=== PATIENT | female | born 1990 | race Caucasian/White ===

== ENCOUNTER 2018-04-04 14:57 | Inpatient (IN) ==
[2018-04-04] MEDS ORDERED: Naloxone Inj 0.4 MG/ML Vial IV.PUSH PRN ×2 (15:17→18:53)
[2018-04-04] MEDS ORDERED: Sod Chloride 0.9% Inj 1,000 ML IV.CONT PRN (15:17)
[2018-04-04] MEDS ORDERED: Sodium Chlor 0.9% Inj 500 ML IV.SIG PRN (15:17)
[2018-04-04] MEDS ORDERED: fentaNYL Citrate Inj 100 MCG/2 ML Ampul IV.PUSH PRN ×2 (15:17)
[2018-04-04] MEDS ORDERED: Oxytocin 30 Units/500ml Premix 30 UNITS/500 ML BAG IV.SIG ONE (15:30)
[2018-04-04] MEDS ORDERED: Citric Acid/Sodium Citrate Liq 30 ML UDC PO SCH (15:30)
[2018-04-04] MEDS ORDERED: Lidocaine PF 1.5% Inj 20 ML Ampule ONE (15:47)
[2018-04-04] MEDS ORDERED: Lidocaaine 1.5%/Epinephrine 1:200,000 PF Inj 5 ML Amp ONE (15:47)
[2018-04-04] MEDS ORDERED: fentaNYL 2MCG-Bupiv 0.125% Epi 150 ML EPIDURAL ONE (15:48)
[2018-04-04 15:50] LABS: Baso % (Auto) 0.1 % (0.0-2.0); Eos % (Auto) 0.3 % (0.0-4.0); Hematocrit 32.4 % (35.0-46.0); Hemoglobin 10.9 gm/dL (11.6-15.3); Lymph # (Auto) 1.5 th/mm3 (1.0-4.8); Lymph % (Auto) 10.7 % (9.0-44.0); Mean Corpuscular HGB Conc 33.7 % (32.0-36.0); Mean Corpuscular Hemoglobin 29.8 pg (27.0-34.0); Mean Corpuscular Volume 88.3 fL (80.0-100.0); Mean Platelet Volume 8.6 fL (7.0-11.0); Mono # (Auto) 0.9 th/mm3 (0.0-0.9); Mono % (Auto) 6.4 % (0.0-8.0); Neut # (Auto) 11.7 th/mm3 (1.8-7.7); Neut % (Auto) 82.5 % (16.0-70.0); Platelet Count 268 th/mm3 (150-450); Red Blood Count 3.66 mil/mm3 (4.00-5.30); Red Cell Distribution Width 12.9 % (11.6-17.2); White Blood Count 14.2 th/mm3 (4.0-11.0)
[2018-04-04 15:54] LABS: Amorphous Sediment,Urine Few /hpf; Bacteria,Urine Occasional /hpf; Bilirubin,Urine Negative (Negative); Clarity,Urine Turbid (Clear); Color,Urine Yellow (Yellw/Straw); Glucose,Urine (UA) Negative (Negative); Leukocyte Esterase,Urine Trace (Negative); Mucus,Urine Moderate /lpf (Occasional); Nitrite,Urine Negative (Negative); Specific Gravity,Urine 1.018 (1.002-1.035); Squamous Epithelial Cell,Urine 3 /hpf (0-5)
[2018-04-04 15:58] LABS: Amphetamine Urine With Conf Neg (Neg); Benzodiazepine Urine With Conf Neg (Neg)
[2018-04-04] MEDS ORDERED: Varicella Vaccine Live 1350 UNITS/0.5 ML Vial SQ ONE (16:00)
[2018-04-04] MEDS ORDERED: Measles/Mumps/Rubella Vaccine Inj 0.5 ML Vial SQ ONE (16:00)
[2018-04-04] MEDS ORDERED: Penicillin G Potassium Inj 5,000,000 UNIT in Sodium Chloride 0.9% Inj 100 ML IV.SIG ONE (16:00)
[2018-04-04] MEDS ORDERED: Diphtheria/Tetanus/Pertussis Vaccine Inj 0.5 ML Syringe IM ONE (16:00)
[2018-04-04] MEDS ORDERED: Rho Immune Globulin Inj 1,500 UNIT/1.3 ML Vial IM ONE (16:00)
[2018-04-04] MEDS ORDERED: fentaNYL 2MCG-Bupiv 0.125% Epi 150 ML EPIDURAL PRN (16:35)
[2018-04-04] MEDS ORDERED: fentaNYL Citrate Inj 100 MCG/2 ML Ampul EPIDURAL ONE (16:35)
--- NOTE | 2018-04-04 17:22 | P.HPOB ---
History of Present Illness Primary Care Physician: No Primary Care Physician Chief Complaint: contractions History of Present Illness: 27 yo with iup at 35w5d who presented for jak visit noting ctx every 10 min since 2 am. She was 7/c/0 on sve. bbow. No bleeding, lof. Good fm. She has been followed for being at risk for iugr; last u/s 3 wk ago noted efw 3 lb 11 oz. Seh was to have a repeat growth u/s today but this was deferred due to active labor and pt discomfort. PMH: Asthma, HSV, CT this . Varicella non-immune. ASC-h pap (colpo x 2 in ). 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 This includes certification that hospital inpatient services are reasonable and necessary and in the case of services not specified as inpatient-only under 42 CFR 419.22(n), that they are appropriately provided as inpatient services in accordance to with the 2-midnight benchmark under 43 CFR 412.3(e) Estimated Total Length of Stay (Days): 2 Plans for Post Hospital Care: Home Review of Systems All other systems reviewed negative except as stated in HPI PMFSH - Medical / Surgical Hx Neg / Unobtainable Surgical History: No Previous Surgery - Medical History Medical History: Medical History (Last Updated 04/04/18 @ 17:15 by Brittney Blanco MD) Asthma - Social History I have reviewed the patient's Social History: Yes - Tobacco History Tobacco Use In Past 30 Days: No Smoking Status: Former smoker Tobacco Type: Cigarettes - Alcohol History How Often Do You Have a Drink Containing Alcohol: Never - Substance Use History Substance History: No History of Abuse - Travel History History of Recent Travel: No Recent Travel in the [place] Within the Last 8 Weeks: No Recent Travel Out of the Country Within the Last 8 Weeks: No Medications and Allergies Active Medications: Active Medications Citric Acid/Sodium Citrate (Sodium Citrate/Citric Acid Liq) 30 ml PO CHEMICAL DETECTION EXPERT YESENIA Stop: 04/08/18 15:29 Ephedrine Sulfate (Ephedrine/Ns Syringe) 10 mg IV.PUSH UNSCH PRN PRN Reason: SEE LABEL COMMENTS Stop: 04/05/18 16:35 Fentanyl Citrate (Fentanyl Inj) 50 mcg IV.PUSH Q1H PRN PRN Reason: Pain Scale 3 - 5 Fentanyl Citrate (Fentanyl Inj) 100 mcg IV.PUSH Q1H PRN PRN Reason: PAIN SCALE 6 TO 10 Lactated Ringer's (Lr 1000 Ml Inj) 1,000 mls @ 125 mls/hr IV.CONT .Q8H YESENIA Last Admin: 04/04/18 15:33 Dose: 125 mls/hr Lactated Ringer's (Lr 1000 Ml Inj) 1,000 mls @ 3,000 mls/hr IV.SIG UNSCH PRN PRN Reason: compromise or epidural Sodium Chloride (Ns Inj) 500 mls @ 1,000 mls/hr IV.SIG UNSCH PRN PRN Reason: SEE LABEL COMMENTS Sodium Chloride (Ns Inj) 1,000 mls @ 100 mls/hr IV.CONT .Q10H PRN PRN Reason: SEE LABEL COMMENTS Penicillin G Potassium 2,500, (000 unit/ Sodium Chloride) 100 mls @ 200 mls/hr IV.SIG Q4H YESENIA Fentanyl/Bupivacaine/Sodium Chlor (Fentanyl 2 Mcg-Bupiv 0.125% Epi) 150 mls @ 12 mls/hr EPIDURAL PRN PRN PRN Reason: for Labor Pain Lidocaine HCl (Xylocaine 1% Inj) 0.1 ml I-DERMAL PRN PRN PRN Reason: For IV start Stop: 04/07/18 15:16 Lidocaine HCl (Xylocaine 1% Inj) 10 ml INFILTRATN PRN PRN PRN Reason: For episiotomy repair Stop: 04/06/18 15:16 Mineral Oil (Muri-Lube Oil) 10 ml TOPICAL UNSCH PRN PRN Reason: PRN perineal massage Miscellaneous Information (Misc Information) 1 each OTHER UNSCH PRN PRN Reason: SEE LABEL COMMENTS Stop: 04/05/18 16:35 Miscellaneous Information (Misc Information) 1 each OTHER UNSCH PRN PRN Reason: SEE LABEL COMMENTS Stop: 04/05/18 16:35 Naloxone HCl (Narcan Inj) 0.1 mg IV.PUSH Q2M PRN PRN Reason: for opiate reversal Ondansetron HCl (Zofran Inj) 4 mg IV.PUSH Q6H PRN PRN Reason: NAUSEA OR VOMITING Allergies Allergy/AdvReac Type Severity Reaction Status Date / Time No Known Allergies Allergy Verified 04/04/18 15:32 Home Medications Medication Instructions Recorded Confirmed Type prenat.vits,daya,[id number] 2 tab PO DAILY 04/04/18 04/04/18 History [ Vitamin] Exam Vital signs: Vital Signs 04/04/18 15:11 04/04/18 15:56 04/04/18 16:00 Temperature Pulse Rate 91 H 87 101 H Respiratory Rate Blood Pressure 123/72 121/79 127/75 04/04/18 16:06 04/04/18 16:11 04/04/18 16:13 Temperature Pulse Rate 116 H 122 H 111 H Respiratory Rate 18 Blood Pressure 111/64 123/104 H 103/55 L 04/04/18 16:20 04/04/18 16:28 04/04/18 16:30 Temperature Pulse Rate 103 H 116 H 97 H Respiratory Rate Blood Pressure 99/54 L 93/52 L 103/67 04/04/18 16:35 04/04/18 16:36 04/04/18 16:40 Temperature Pulse Rate 114 H 92 H 102 H Respiratory Rate Blood Pressure 111/66 04/04/18 16:45 04/04/18 16:50 04/04/18 17:05 Temperature 98.2 F Pulse Rate 101 H 114 H Respiratory Rate Blood Pressure 110/76 118/59 L Intake & Output 04/03/18 04/04/18 04/04/18 18:59 06:59 18:59 Weight 75.75 kg - Constitutional no acute distress - Routine HEENT Exam Head: Present: normocephalic Eye: Present: EOMI - Routine Neck Exam Present: supple, full ROM - Routine Chest/Breast/Axilla Exam Chest wall: Absent: tenderness - Routine Respiratory Exam Absent: accessory muscle use, respiratory distress - Routine Cardiovascular Exam Present: RRR - Routine Abdominal Exam Present: firm (muna) - Routine Exam Patient deferred: external exam (normal, no hsv lesions) External: Present: normal urethra appearance Groin: Absent: inguinal hernia Perineum Description: Intact Comments: 7/c/0 in office, presently 9/c/0 - Routine Extremities Exam Present: edema. Absent: cyanosis, clubbing - Routine Skin Exam Present: intact - Routine Neurological Exam Present: alert, oriented X3 Results - Labs CBC & Chem 7: 04/04/18 15:22 Labs: Laboratory Results - last 24 hr 04/04/18 04/04/18 04/04/18 15:22 15:22 15:22 WBC 14.2 H RBC 3.66 L Hgb 10.9 L Hct 32.4 L MCV 88.3 MCH 29.8 MCHC 33.7 RDW 12.9 Plt Count 268 MPV 8.6 Neut % (Auto) 82.5 H Lymph % (Auto) 10.7 [place] % (Auto) 6.4 Eos % (Auto) 0.3 Baso % (Auto) 0.1 Neut # (Auto) 11.7 H Lymph # (Auto) 1.5 [place] # (Auto) 0.9 Eos # (Auto) 0.0 Baso # (Auto) 0.0 WBC Differential . Differential Comment Auto diff final Urine Color Urine Clarity Urine pH Ur Specific [place] Urine Protein Urine Glucose (UA) Urine Ketones Urine Occult Blood Urine Nitrate Urine Bilirubin Urine Urobilinogen Ur Leukocyte Esterase Urine RBC Urine WBC Ur Squamous Epith Cells Amorphous Sediment Urine Bacteria Urine Mucus Micro UA Comment Ur Microscopic Review Urine Culture Comments Urine Opiates Screen Neg Ur Barbiturates Screen Neg Ur Amphetamine Screen Neg U Benzodiazepines Scrn Neg Urine Cocaine Screen Neg U Cannabinoids Screen Pos H Blood Type A Negative 04/04/18 15:22 WBC RBC Hgb Hct MCV MCH MCHC RDW Plt Count MPV Neut % (Auto) Lymph % (Auto) [place] % (Auto) Eos % (Auto) Baso % (Auto) Neut # (Auto) Lymph # (Auto) [place] # (Auto) Eos # (Auto) Baso # (Auto) WBC Differential Differential Comment Urine Color Yellow Urine Clarity Turbid H Urine pH 8.0 Ur Specific [place] 1.018 Urine Protein 30 H Urine Glucose (UA) Negative Urine Ketones Negative Urine Occult Blood Negative Urine Nitrate Negative Urine Bilirubin Negative Urine Urobilinogen Less than 2 Ur Leukocyte Esterase Trace H Urine RBC 2 Urine WBC 3 Ur Squamous Epith Cells 3 Amorphous Sediment Few H Urine Bacteria Occasional H Urine Mucus Moderate H Micro UA Comment Culture not ind Ur Microscopic Review Not Reportable Urine Culture Comments Culture not ind Urine Opiates Screen Ur Barbiturates Screen Ur Amphetamine Screen U Benzodiazepines Scrn Urine Cocaine Screen U Cannabinoids Screen Blood Type Group B Strep: unknown Caprini VTE Risk Assessment Caprini VTE Risk Assessment: No/Low Risk (score <= 1) Caprini Risk Assessment Model: Point Value = 1 Point Value = 2 Point Value = 3 Point Value = 5 Age 41-60 Minor surgery BMI > 25 kg/m2 Swollen legs Varicose veins or History of unexplained or recurrent spontaneous Oral contraceptives or hormone replacement Sepsis (< 1 month) Serious lung disease, including pneumonia (< 1 month) Abnormal pulmonary function Acute myocardial infarction Congestive heart failure (< 1 month) History of inflammatory bowel disease Medical patient at bed rest Age 61-74 Arthroscopic surgery Major open surgery (> 45 min) Laparoscopic surgery (> 45 min) Malignancy Confined to bed (> 72 hours) Immobilizing plaster cast Central venous access Age >= 75 History of VTE Family history of VTE Factor V Leiden Prothrombin [id number] Lupus anticoagulant Anticardiolipin antibodies Elevated serum homocysteine Heparin-induced thrombocytopenia Other congenital or acquired thrombophilia Stroke (< 1 month) Elective arthroplasty Hip, pelvis, or leg fracture Acute spinal cord injury (< 1 month) Prophylaxis Regimen: Total Risk Factor Score Risk Level Prophylaxis Regimen 0-1 Low Early ambulation 2 Moderate Order ONE of the following: *Sequential Compression Device (SCD) *Heparin 5000 units SQ BID 3-4 Higher Order ONE of the following medications: *Heparin 5000 units SQ TID *Enoxaparin/Lovenox 40 mg SQ daily (WT < 150 kg, CrCl > 30 mL/min) *Enoxaparin/Lovenox 30 mg SQ daily (WT < 150 kg, CrCl > 10-29 mL/min) *Enoxaparin/Lovenox 30 mg SQ BID (WT < 150 kg, CrCl > 30 mL/min) AND/OR *Sequential Compression Device (SCD) 5 or more Highest Order ONE of the following medications: *Heparin 5000 units SQ TID (Preferred with Epidurals) *Enoxaparin/Lovenox 40 mg SQ daily (WT < 150 kg, CrCl > 30 mL/min) *Enoxaparin/Lovenox 30 mg SQ daily (WT < 150 kg, CrCl > 10-29 mL/min) *Enoxaparin/Lovenox 30 mg SQ BID (WT < 150 kg, CrCl > 30 mL/min) AND *Sequential Compression Device (SCD) Assessment and Plan - Diagnosis (1) labor Code(s): O60.00 - labor without delivery, unspecified trimester Status : Acute (2) 35 weeks gestation of Code(s): Z3A.35 - 35 weeks gestation of Status: Acute (3) Rh negative state in antepartum period Code(s): O09.899 - Supervision of other high risk pregnancies, unspecified trimester; Z67.91 - Unspecified blood type, Rh negative Status: Acute (4) IUGR (intrauterine growth restriction) Status: Acute - Plan 27 yo with iup at 35w5d being admitted with labor 1) labor- progressed from 7 to 9 cm dilated. She has epidural placed, anticipate 2) iugr- likely less than 5 lb 3) gbs unknown- on pcn 4) RH neg- s/p rhogam 5) HSV- n current esions notee on exam. 6) CT this - nadiya neg 7) ASC-H on pap- had colpo during . Will need repeat pap pp. 8) Anemia- on iron 9) fetus- male, iugr, normal dopplers adn bpp prior 3 wk, cat I tracing (1) labor Qualifiers: labor trimester: third trimester Fetus number: single or unspecified fetus
[2018-04-04] MEDS ORDERED: Lidocaine 1% Inj 50 ML Vial ONE (17:33)
[2018-04-04] MEDS ORDERED: Witch Hazel 50%/Glyderin 12.5% 40 Pad Jar RECTAL PRN (18:53)
[2018-04-04] MEDS ORDERED: Oxytocin 30 Units/500ml Premix 30 UNITS/500 ML BAG IV.CONT PRN (18:53)
[2018-04-04] MEDS ORDERED: Acetaminophen 325 MG Tablet PO PRN (18:53)
[2018-04-04] MEDS ORDERED: Bisacodyl 10 MG Supp RECTAL PRN (18:53)
[2018-04-04] MEDS ORDERED: Zolpidem Tartrate 5 MG Tablet PO PRN (18:53)
[2018-04-04] MEDS ORDERED: Benzocaine 20% Top Spray 60 ML Can TOPICAL PRN (18:53)
[2018-04-04] MEDS ORDERED: ceFAZolin Inj 3,000 MG in Sodium Chlor 0.9% Inj 100 ML IV.SIG SCH (18:56)
--- NOTE | 2018-04-04 19:06 | P.OBDELI ---
Weeks Gestation: 35 Patient Started Active Labor: Yes Medical Induction of Labor: No Artificial Rupture of Membrane: Yes (at 9 cm) Anesthesia: Epidural Episiotomy: none Vaginal Delivery: Normal Presentation: Occiput anterior Nuchal Cord: x1 (reduced at perineum) Delayed Cord Clamping (45 sec): Yes Placenta: Manual removal, Not intact (macerated in appearance, multiple calcifications. cx collected and sent to pathology), Uterus explored + (sharp curettage performed, until no further products noted) Repair: Chromic running (right labial laceration) Estimated blood loss (mL): 600 : Male Infant Male A Delivery Date: 04/04/18 Infant Delivery Time: 18:04 Weight: 2.125 kg score (1 min): 8 score (5 min): 8 Additional Information: methergine q 8 hours and ancef will be started.
[2018-04-04] MEDS ORDERED: Penicillin G Potassium Inj 2,500,000 UNIT in Sodium Chlor 0.9% Inj 100 ML IV.SIG SCH (20:00)
[2018-04-04] MEDS: Senna/Docusate Sodium 8.6/50 MG Tablet PO SCH (22:19)
[2018-04-05] MEDS ORDERED: Ferrous Sulfate 325 MG Tablet PO SCH (09:00)
[2018-04-05] MEDS: Ferrous Sulfate 325 MG Tablet PO SCH (09:15)
[2018-04-05] MEDS: Senna/Docusate Sodium 8.6/50 MG Tablet PO SCH ×2 (09:15→22:13)
--- NOTE | 2018-04-05 11:32 | P.PNOB ---
Subjective Post day: 1 Interval history: PPD#1, Doing well, no c/o Objective Vital Signs/I&O: Vital Signs 04/04/18 15:11 04/04/18 15:56 04/04/18 16:00 Temperature Pulse Rate 91 H 87 101 H Respiratory Rate Blood Pressure 123/72 121/79 127/75 04/04/18 16:06 04/04/18 16:11 04/04/18 16:13 Temperature Pulse Rate 116 H 122 H 111 H Respiratory Rate 18 Blood Pressure 111/64 123/104 H 103/55 L 04/04/18 16:20 04/04/18 16:28 04/04/18 16:30 Temperature Pulse Rate 103 H 116 H 97 H Respiratory Rate Blood Pressure 99/54 L 93/52 L 103/67 04/04/18 16:35 04/04/18 16:36 04/04/18 16:40 Temperature Pulse Rate 114 H 92 H 102 H Respiratory Rate Blood Pressure 111/66 04/04/18 16:45 04/04/18 16:50 04/04/18 16:55 Temperature 98.2 F Pulse Rate 101 H 90 Respiratory Rate Blood Pressure 110/76 04/04/18 17:05 04/04/18 17:16 04/04/18 17:25 Temperature Pulse Rate 114 H 94 H 95 H Respiratory Rate Blood Pressure 118/59 L 106/51 L 04/04/18 17:40 04/04/18 18:50 04/04/18 19:00 Temperature 98.2 F Pulse Rate 95 H 101 H 81 Respiratory Rate 18 Blood Pressure 106/59 L 115/62 109/64 04/04/18 19:15 04/04/18 19:31 04/04/18 21:30 Temperature 98.1 F Pulse Rate 90 92 H 87 Respiratory Rate 15 18 Blood Pressure 119/72 125/67 113/69 04/05/18 08:00 Temperature 98.1 F Pulse Rate 88 Respiratory Rate 18 Blood Pressure 110/77 Intake & Output 04/04/18 04/05/18 04/05/18 18:59 06:59 18:59 Intake Total 100 / 100 Balance 100 / 100 Weight 75.75 kg Intake: IV 100 / 100 Ancef Inj 1,000 MG In NS Inj 100 / 100 100 ML @ 200 mls/hr IV.SIG Q8H YESENIA Rx#:[id number] Result Diagrams: 10/02/18 15:22 Objective Remarks: GENERAL: Well-nourished, well-developed patient. CARDIOVASCULAR: Regular rate and rhythm without murmurs, gallops, or rubs. RESPIRATORY: Breath sounds equal bilaterally. No accessory muscle use. ABDOMEN/GI: Abdomen soft, non-tender. Fundus: Firm, non-tender at umbilicus. GENITOURINARY: Light to moderate bleeding. EXTREMITIES: No cyanosis or edema, non-tender, without signs of DVT. Medications and IVs: Active Medications Acetaminophen (Tylenol) 650 mg PO Q4H PRN PRN Reason: PAIN SCALE 1 TO 2 Al Hydroxide/Mg Hydroxide (Milk Of Magnesia Liq) 30 ml PO Q12H PRN PRN Reason: Mild Constipation Benzocaine (Americaine 20% Top [place]) 1 spray TOPICAL Q4H PRN PRN Reason: For Perineum Discomfort Last Admin: 04/04/18 22:16 Dose: 1 spray Bisacodyl (Dulcolax Supp) 10 mg RECTAL DAILY PRN PRN Reason: SEVERE CONSITIPATION Citric Acid/Sodium Citrate (Sodium Citrate/Citric Acid Liq) 30 ml PO WATER PUMP ASSEMBLER [facility] Stop: 04/08/18 15:29 Ephedrine Sulfate (Ephedrine/Ns Syringe) 10 mg IV.PUSH UNSCH PRN PRN Reason: SEE LABEL COMMENTS Stop: 04/05/18 16:35 Last Admin: 04/04/18 19:02 Dose: 10 mg Fentanyl Citrate (Fentanyl Inj) 50 mcg IV.PUSH Q1H PRN PRN Reason: Pain Scale 3 - 5 Fentanyl Citrate (Fentanyl Inj) 100 mcg IV.PUSH Q1H PRN PRN Reason: PAIN SCALE 6 TO 10 Ferrous Sulfate (Ferosul) 325 mg PO DAILY [facility] Last Admin: 04/05/18 09:15 Dose: 325 mg Lactated Ringer's (Lr 1000 Ml Inj) 1,000 mls @ 125 mls/hr IV.CONT .Q8H [facility] Last Admin: 04/05/18 11:04 Dose: Not Given Lactated Ringer's (Lr 1000 Ml Inj) 1,000 mls @ 3,000 mls/hr IV.SIG UNSCH PRN PRN Reason: compromise or epidural Last Admin: 04/04/18 19:03 Dose: 3,000 mls/hr Sodium Chloride (Ns Inj) 500 mls @ 1,000 mls/hr IV.SIG UNSCH PRN PRN Reason: SEE LABEL COMMENTS Sodium Chloride (Ns Inj) 1,000 mls @ 100 mls/hr IV.CONT .Q10H PRN PRN Reason: SEE LABEL COMMENTS Fentanyl/Bupivacaine/Sodium Chlor (Fentanyl 2 Mcg-Bupiv 0.125% Epi) 150 mls @ 12 mls/hr EPIDURAL PRN PRN PRN Reason: for Labor Pain Oxytocin (Pitocin 30 Units/Ns 500 Ml Premix) 30 units in 500 mls @ 100 mls/hr IV.CONT UNSCH PRN PRN Reason: Heavy bleeding Cefazolin Sodium 1,000 mg/ (Sodium Chloride) 100 mls @ 200 mls/hr IV.SIG Q8H YESENIA Stop: 04/05/18 14:29 Last Admin: 04/05/18 06:40 Dose: 200 mls/hr Ibuprofen (Motrin) 800 mg PO Q8H PRN PRN Reason: For Cramping Last Admin: 04/05/18 06:49 Dose: 800 mg Lidocaine HCl (Xylocaine 1% Inj) 0.1 ml I-DERMAL PRN PRN PRN Reason: For IV start Stop: 04/07/18 15:16 Lidocaine HCl (Xylocaine 1% Inj) 10 ml INFILTRATN PRN PRN PRN Reason: For episiotomy repair Stop: 04/06/18 15:16 Methylergonovine Maleate (Methergine) 0.2 mg PO Q8HR YESENIA Stop: 04/06/18 21:59 Last Admin: 04/05/18 06:41 Dose: 0.2 mg Mineral Oil (Muri-Lube Oil) 10 ml TOPICAL UNSCH PRN PRN Reason: PRN perineal massage Last Admin: 04/04/18 19:00 Dose: 10 ml Miscellaneous Information (Misc Information) 1 each OTHER UNSCH PRN PRN Reason: SEE LABEL COMMENTS Stop: 04/05/18 16:35 Miscellaneous Information (Misc Information) 1 each OTHER UNSCH PRN PRN Reason: SEE LABEL COMMENTS Stop: 04/05/18 16:35 Naloxone HCl (Narcan Inj) 0.1 mg IV.PUSH Q2M PRN PRN Reason: for opiate reversal Naloxone HCl (Narcan Inj) 0.1 mg IV.PUSH Q2M PRN PRN Reason: for opiate reversal Ondansetron HCl (Zofran Inj) 4 mg IV.PUSH Q6H PRN PRN Reason: NAUSEA OR VOMITING Ondansetron HCl (Zofran Odt) 4 mg PO Q6H PRN PRN Reason: NAUSEA OR VOMITING Oxycodone/Acetaminophen (Percocet 5/325 Mg) 1 tab PO Q4H PRN PRN Reason: PAIN SCALE 3 TO 5 Senna/Docusate Sodium (Adina-Colace) 1 tab PO BID [facility] Last Admin: 04/05/18 09:15 Dose: 1 tab Sennosides (Senokot) 17.2 mg PO Q12H PRN PRN Reason: Moderate Constipation Sodium Chloride (Ns Flush) 2 ml IV.FLUSH BID [facility] Last Admin: 04/04/18 23:10 Dose: 2 ml Sodium Chloride (Ns Flush) 2 ml IV.FLUSH PRN PRN PRN Reason: FLUSH AFTER USING IV ACCESS Witch Tanisha/Glycerin (Tucks Pads) 1 applicatio RECTAL QID PRN PRN Reason: HEMORRHOIDS Last Admin: 04/04/18 22:17 Dose: 1 applicatio Zolpidem Tartrate (Ambien) 5 mg PO HS PRN PRN Reason: SLEEP Assessment and Plan - Diagnosis (1) labor Code(s): O60.00 - labor without delivery, unspecified trimester Status : Acute (2) 35 weeks gestation of Code(s): Z3A.35 - 35 weeks gestation of Status: Acute (3) Rh negative state in antepartum period Code(s): O09.899 - Supervision of other high risk pregnancies, unspecified trimester; Z67.91 - Unspecified blood type, Rh negative Status: Acute (4) IUGR (intrauterine growth restriction) Status: Acute - Plan 27 yo with iup at 35w5d being admitted with labor 1) labor- progressed from 7 to 9 cm dilated. She has epidural placed, anticipate 2) iugr- likely less than 5 lb 3) gbs unknown- on pcn 4) RH neg- s/p rhogam 5) HSV- n current esions notee on exam. 6) CT this - nadiya neg 7) ASC-H on pap- had colpo during . Will need repeat pap pp. 8) Anemia- on iron 9) fetus- male, iugr, normal dopplers adn bpp prior 3 wk, cat I tracing 04/05/18; PPD#1; Stable, plan discharge for tomorrow Discharge Planning: Tomorrow (1) labor Qualifiers: labor trimester: third trimester Fetus number: single or unspecified fetus
[2018-04-06] MEDS: Senna/Docusate Sodium 8.6/50 MG Tablet PO SCH (08:06)
[2018-04-06] MEDS: Ferrous Sulfate 325 MG Tablet PO SCH (08:06)
[2018-04-06] MEDS ORDERED: Diphtheria/Tetanus/Pertussis Vaccine Inj 0.5 ML Syringe IM ONE (08:09)
--- NOTE | 2018-04-06 08:13 | P.PNOB ---
Subjective Post day: 2 Interval history: no complaints, ready to go home Objective Vital Signs/I&O: Vital Signs 04/05/18 20:00 Temperature 97.9 F Pulse Rate 75 Respiratory Rate 18 Blood Pressure 114/65 Result Diagrams: 04/04/18 15:22 Objective Remarks: GENERAL: Well-nourished, well-developed patient. CARDIOVASCULAR: Regular rate and rhythm without murmurs, gallops, or rubs. RESPIRATORY: Breath sounds equal bilaterally. No accessory muscle use. ABDOMEN/GI: Abdomen soft, non-tender. Fundus: Firm, non-tender at umbilicus. GENITOURINARY: Light to moderate bleeding. EXTREMITIES: No cyanosis or edema, non-tender, without signs of DVT. Medications and IVs: Active Medications Acetaminophen (Tylenol) 650 mg PO Q4H PRN PRN Reason: PAIN SCALE 1 TO 2 Al Hydroxide/Mg Hydroxide (Milk Of Magnesia Liq) 30 ml PO Q12H PRN PRN Reason: Mild Constipation Benzocaine (Americaine 20% Top [place]) 1 spray TOPICAL Q4H PRN PRN Reason: For Perineum Discomfort Last Admin: 04/04/18 22:16 Dose: 1 spray Bisacodyl (Dulcolax Supp) 10 mg RECTAL DAILY PRN PRN Reason: SEVERE CONSITIPATION Citric Acid/Sodium Citrate (Sodium Citrate/Citric Acid Liq) 30 ml PO APPLIANCE [facility] Stop: 04/08/18 15:29 Fentanyl Citrate (Fentanyl Inj) 50 mcg IV.PUSH Q1H PRN PRN Reason: Pain Scale 3 - 5 Fentanyl Citrate (Fentanyl Inj) 100 mcg IV.PUSH Q1H PRN PRN Reason: PAIN SCALE 6 TO 10 Ferrous Sulfate (Ferosul) 325 mg PO DAILY [facility] Last Admin: 04/06/18 08:06 Dose: 325 mg Lactated Ringer's (Lr 1000 Ml Inj) 1,000 mls @ 125 mls/hr IV.CONT .Q8H [facility] Last Admin: 04/06/18 02:18 Dose: Not Given Lactated Ringer's (Lr 1000 Ml Inj) 1,000 mls @ 3,000 mls/hr IV.SIG UNSCH PRN PRN Reason: compromise or epidural Last Admin: 04/04/18 19:03 Dose: 3,000 mls/hr Sodium Chloride (Ns Inj) 500 mls @ 1,000 mls/hr IV.SIG UNSCH PRN PRN Reason: SEE LABEL COMMENTS Sodium Chloride (Ns Inj) 1,000 mls @ 100 mls/hr IV.CONT .Q10H PRN PRN Reason: SEE LABEL COMMENTS Fentanyl/Bupivacaine/Sodium Chlor (Fentanyl 2 Mcg-Bupiv 0.125% Epi) 150 mls @ 12 mls/hr EPIDURAL PRN PRN PRN Reason: for Labor Pain Oxytocin (Pitocin 30 Units/Ns 500 Ml Premix) 30 units in 500 mls @ 100 mls/hr IV.CONT UNSCH PRN PRN Reason: Heavy bleeding Ibuprofen (Motrin) 800 mg PO Q8H PRN PRN Reason: For Cramping Last Admin: 04/06/18 05:57 Dose: 800 mg Lidocaine HCl (Xylocaine 1% Inj) 0.1 ml I-DERMAL PRN PRN PRN Reason: For IV start Stop: 04/07/18 15:16 Lidocaine HCl (Xylocaine 1% Inj) 10 ml INFILTRATN PRN PRN PRN Reason: For episiotomy repair Stop: 04/06/18 15:16 Methylergonovine Maleate (Methergine) 0.2 mg PO Q8H YESENIA Stop: 04/06/18 16:01 Last Admin: 04/06/18 07:55 Dose: 0.2 mg Mineral Oil (Muri-Lube Oil) 10 ml TOPICAL UNSCH PRN PRN Reason: PRN perineal massage Last Admin: 04/04/18 19:00 Dose: 10 ml Naloxone HCl (Narcan Inj) 0.1 mg IV.PUSH Q2M PRN PRN Reason: for opiate reversal Naloxone HCl (Narcan Inj) 0.1 mg IV.PUSH Q2M PRN PRN Reason: for opiate reversal Ondansetron HCl (Zofran Inj) 4 mg IV.PUSH Q6H PRN PRN Reason: NAUSEA OR VOMITING Ondansetron HCl (Zofran Odt) 4 mg PO Q6H PRN PRN Reason: NAUSEA OR VOMITING Oxycodone/Acetaminophen (Percocet 5/325 Mg) 1 tab PO Q4H PRN PRN Reason: PAIN SCALE 3 TO 5 Senna/Docusate Sodium (Adina-Colace) 1 tab PO BID [facility] Last Admin: 04/06/18 08:06 Dose: 1 tab Sennosides (Senokot) 17.2 mg PO Q12H PRN PRN Reason: Moderate Constipation Sodium Chloride (Ns Flush) 2 ml IV.FLUSH BID YESENIA Last Admin: 04/06/18 08:07 Dose: Not Given Sodium Chloride (Ns Flush) 2 ml IV.FLUSH PRN PRN PRN Reason: FLUSH AFTER USING IV ACCESS Witch Tanisha/Glycerin (Tucks Pads) 1 applicatio RECTAL QID PRN PRN Reason: HEMORRHOIDS Last Admin: 04/04/18 22:17 Dose: 1 applicatio Zolpidem Tartrate (Ambien) 5 mg PO HS PRN PRN Reason: SLEEP Assessment and Plan - Diagnosis (1) labor Code(s): O60.00 - labor without delivery, unspecified trimester Status : Acute (2) 35 weeks gestation of Code(s): Z3A.35 - 35 weeks gestation of Status: Acute (3) Rh negative state in antepartum period Code(s): O09.899 - Supervision of other high risk pregnancies, unspecified trimester; Z67.91 - Unspecified blood type, Rh negative Status: Acute (4) IUGR (intrauterine growth restriction) Status: Acute (5) Vaginal delivery Code(s): O80 - Encounter for full-term uncomplicated delivery Status: Acute - Plan 27 yo with iup at 35w5d being admitted with labor 1) labor- progressed from 7 to 9 cm dilated. She has epidural placed, anticipate 2) iugr- likely less than 5 lb 3) gbs unknown- on pcn 4) RH neg- s/p rhogam 5) HSV- n current esions notee on exam. 6) CT this - nadiya neg 7) ASC-H on pap- had colpo during . Will need repeat pap pp. 8) Anemia- on iron 9) fetus- male, iugr, normal dopplers adn bpp prior 3 wk, cat I tracing 04/06/18; PPD#2; Stable, plan discharge for today Discharge Planning: Today - Attending Attestation pt seen by me (1) labor Qualifiers: labor trimester: third trimester Fetus number: single or unspecified fetus
[2018-04-06 08:46] VITALS: BP 104/64
[2018-04-06 08:47] VITALS: PULSE 68; RESP 20; TEMP 98.2
== END 2018-04-06 12:14 | disposition home or self-care (01) ==
LOC: H2E 14:57 → H1EA 20:08
PROVIDERS: ADMIT Obstetrics & Gynecology; ATTEND Obstetrics & Gynecology